=== PATIENT | male | born 1965 | race Caucasian/White ===

== ENCOUNTER 2016-11-02 07:58 | Emergency (ER) | payer BC, OTHER ==
[~2016-11-02] VITALS: Ht 185.4 cm; Wt 131.5 kg
[2016-11-02] MEDS ORDERED: LISINOPRIL40 MG PO (08:13)
[2016-11-02] MEDS ORDERED: COLCHICINE0.6 M4 PO (08:29)
--- NOTE | 2016-11-02 08:30 | Emergency Room Report ---
History of Present Illness Time Seen by [id number] Presenting Problem in Triage Pt arrived:Walked Presenting Problem:left ankle pain and swelling x3 days. pt believes he has gout which he has a hx. of Onset of symptoms date/time:10/30/16 or onset unknown for: Treatment Prior to Arrival: M[facility] T[facility]OR Provided by: Sepsis Risk Assessment: Temp: 97.9 B/P: 157/90 MAP: 112 Pulse: 90 Resp: 16 Recent fever? N Clinical Suspician of Infection? N Mental Status: 1 - Regular (Normal Baseline) Sepsis Risk:Low Sepsis Risk Have you (or family members/close friends) recently traveled outside the [place]? N If Yes, where/when: Have you had exposure to infectious disease within the past month? N TB? Other? Specify: Source patient, RN notes reviewed, RN/MD Exam Limitations no limitations Comment This is a 51-year-old gentleman arriving to the emergency room with LEFT ankle pain and swelling for the past 24 hours. Patient stated that he has friends from out of town and he has been drinking for the past 2-3 days. He has a history of previous gouty arthritis, and was able to recognize same symptoms ALLERGIES Coded Allergies: allopurinol (Mild, 11/02/16) Home Medications Reported Medications Lisinopril (Lisinopril 40MG) 50 MG PO DAILY History Medical History General CAD? No Angina: No OR: No Hypertension? Yes Hyperlipidemia? No CHF? No DVT? No PE? No COPD? No Asthma? No Anemia? No GERD? No Gastric ulcers? No GI Bleed? No Hernia? No Thyroid Problems? No Hypothyroidism? No CVA? No Seizures? No Diabetes? No Renal Insuffiency? No End Stage Renal Disease? No UTI? No Stones? No BPH? No GB Disease: No Nephritic Syndrome? No Asplenia? No Hepatitis? No Sickle Cell Disease? No Arthritis? No Migraines? No Cataracts? No Glaucoma? No MRSA? No HIV? No TB? No Anxiety? No Depression? No Cancer? No More? No Immunization Hx DT/Tetanus 1-4 Years Ago Surgical Hx Previous Surgery?Y SCREWS IN RIGHT ANKLE TONSILECTOMY Social History Smoking Hx Smoker: Former Smoker Tobacco: No Alcohol Alcohol: No Review of Systems All Other Systems Reviewed and Negative Musculoskeletal joint pain (LEFT ankle pain), joint swelling (LEFT ankle swelling) Physical Exam Vital Signs Vital Signs Date Time Temp Pulse Resp B/P Pulse O2 O2 Flow FiO2 Ox Delivery Rate 11/02 0837 98.0 76 16 142/90 95 11/02 0809 97.9 90 16 157/90 97 General Appearance normal appearance, WD/WN, mild distress Respiratory Status Yes: trachea midline, chest symmetrical, non tender chest. No: respiratory distress. Lung Sounds bilateral: normal breath sounds, lungs clear. Cardiovascular normal exam, regular rate/rhythm, no peripheral edema, no gallop, no JVD, no murmur, no rub, normal peripheral pulses Gastrointestinal normal bowel sounds, normal exam, non tender, soft, no organomegaly Extremities LEFT ankle tender to palpation, swollen, erythematous, warm to touch Neurologic alert, human resources benefits administrator II-XII nml as tested, normal exam, oriented x 3 Mental status normal mood/affect Skin intact, normal color, warm/dry Medical Decision Making LABS/Meds/Orders Pt receiving controlled substance in ED? No Results/Orders Patient's current presentation is consistent with gouty arthritis. Advised patient to take the Colchicine as directed, follow up with PCP if not better per discharge instructions. Departure Departure Time of Disposition 823 Disposition DC Home or Self Care(routine) Clinical Impression Primary Impression: Arthritis, gouty Condition STABLE Referrals Greg WISE,Rodney Saleh: 1 Week-Call Office if not better Patient Instructions DI for Gout, Gout (Alternative Therapy), Higher Vitamin C Intake Associated With Lower Risk of Gout Additional Instructions Please take the medications prescribed as instructed, follow with your PCP (of choice) if nnot better per discharge instrcutions. Discharge Counseling Counseled pt/family regarding diagnosis, medications/RX, home care, follow up needs, alcohol counseling,> 3min Comment Please take the medications prescribed as instructed, follow with your PCP (of choice) if nnot better per discharge instrcutions. Prescriptions Current Visit Scripts Colchicine 0.6 MG PO DIRECTED PRN ankle pain #40 TAB Ref 1 Take 2 pills initially, followed by one pill 1 hour later. maximum dose 1.8mg total dose/attack. ED Critical Care Critical Care No at [id number]
[2016-11-02 08:37] VITALS: BP 142/90
== END 2016-11-02 08:37 | disposition home or self-care (01) ==
LOC: ER 07:58
DX: M10.072 Idiopathic gout, left ankle and foot (principal); I10 Essential (primary) hypertension